=== PATIENT | female | born 1995 | race Caucasian/White ===

== ENCOUNTER 2021-04-06 00:43 | Emergency (ER) | payer OTHER ==
[~2021-04-06] VITALS: Ht 152.4 cm; Wt 69.0 kg
[2021-04-06] MEDS ORDERED: KETOROLAC 60MG/2ML VIAL IM ONE (02:45)
[2021-04-06 02:56] LABS: *AMPHETAMINES SCREEN URINE NEGATIVE (NEGATIVE); *BARBITURATES SCREEN URINE NEGATIVE (NEGATIVE); *BENZODIAZEPINES SCREEN URINE NEGATIVE (NEGATIVE); *COCAINE SCREEN URINE NEGATIVE (NEGATIVE); METHADONE URINE SCREEN NEGATIVE (NEGATIVE)
[2021-04-06 02:57] LABS: CANNABINOID URINE SCREEN NEGATIVE (NEGATIVE); OPIATES URINE SCREEN NEGATIVE (NEGATIVE); PHENCYCLIDINE URINE SCREEN NEGATIVE (NEGATIVE)
[2021-04-06] MEDS ORDERED: IBUP-2029 MT (03:29)
[2021-04-06 03:49] VITALS: BP 130/72
== END 2021-04-06 03:50 | disposition home or self-care (01) ==
LOC: ER 01:45
DX: R07.89 Other chest pain (principal); Z13.9 Encounter for screening, unspecified; Z90.49 Acquired absence of other specified parts of digestive tract
CPT/HCPCS: 71045; 80305; 81025; 93005; 96372; 99285; J1885